=== PATIENT | female | born 1945 | race Caucasian/White ===

== ENCOUNTER 2023-08-12 03:08 | Emergency (ER) | payer MEDICARE, MEDICAID ==
[~2023-08-12] VITALS: Ht 147.3 cm; Wt 63.0 kg
[~2023-08-12 03:08] MED LIST: ALLO100T PO; AMLO5TAB88 PO; TRAM50TA PO; TRIA1TAB92 PO
[2023-08-12 03:15] VITALS: O2SAT 100
[2023-08-12 05:12] VITALS: BP 131/60; PULSE 79; RESP 16; TEMP 98.8
[2023-08-12] MEDS: BACITRACIN 14GM TUBE TOP ONE (06:11)
[2023-08-12] MEDS: BACITRACIN ZINC OINT UDPKT TOP NR (06:20)
== END 2023-08-12 06:20 | disposition home or self-care (01) ==
LOC: ER 03:15
DX: S51.811A Laceration without foreign body of right forearm, initial encounter (principal); E11.9 Type 2 diabetes mellitus without complications; I10 Essential (primary) hypertension; Z88.0 Allergy status to penicillin; Z98.890 Other specified postprocedural states; W01.0XXA Fall on same level from slipping, tripping and stumbling without subsequent striking against object, initial encounter; Y93.89 Activity, other specified; Y92.89 Other specified places as the place of occurrence of the external cause; Y99.8 Other external cause status
CPT/HCPCS: 99282